=== PATIENT | female | born 1980 | race Two or more races ===

== ENCOUNTER 2016-12-24 20:34 | Emergency (ER) | payer SELFPAY ==
[~2016-12-24] VITALS: Ht 152.4 cm; Wt 93.1 kg
[2016-12-24 20:37] VITALS: BP 188/82
[2016-12-24] MEDS ORDERED: LORazepam 1MG TABLET PO ONE (21:00)
[2016-12-24] MEDS ORDERED: LIDOCAINE 1%-EPI 1:100K, 20ML SQ ONE (21:00)
[2016-12-24] MEDS ORDERED: ASPIRIN 81 MG TABLET CHEW PO ONE (21:00)
[2016-12-24 21:06] LABS: HEMOGLOBIN 15.1 g/dL (11.7-16.4)
[2016-12-24 21:17] LABS: BLOOD UREA NITROGEN 10 mg/dL (7-18)
[2016-12-24 21:22] LABS: IS PT STATUS REG ER OR PRE ER? YES
[2016-12-24 22:00] LABS: DIFF TOTAL CELLS COUNTED 100 CELL DIFF
[2016-12-24 22:07] LABS: VERIFY COUNTS? YES
[2016-12-24 22:11] LABS: LARGE PLATELETS 1+
[2016-12-24 22:12] LABS: POLYCHROMASIA 1+
[2016-12-24] MEDS ORDERED: LORazepam 1MG TABLET ONE (23:11)
[2016-12-24] MEDS ORDERED: ASPIRIN 81 MG TABLET CHEW ONE (23:12)
[2016-12-24] MEDS ORDERED: LIDOCAINE 1%-EPI 1:100K, 20ML ONE (23:12)
== END 2016-12-25 00:58 | disposition home or self-care (01) ==
LOC: ED 23:59
DX: I10 Essential (primary) hypertension (principal); F41.1 Generalized anxiety disorder; R07.89 Other chest pain
CPT/HCPCS: 36415; 71010; 80048; 82040; 84484; 85025; 93005